=== PATIENT | male | born 1930 | race African-American/Black ===

== ENCOUNTER 2016-09-03 05:46 | Day surgery (SDC) | payer MEDICAID, MEDICARE ==
--- NOTE | 2016-09-02 16:49 | Pre-op HX & Phy Repo 2 SIG ---
DATE OF ADMISSION: 09/03/2016 DATE OF DICTATION: 09/02/2016 DATE OF SURGERY: 09/03/2016 PREOPERATIVE DIAGNOSIS: Vitreous opacification with chronic inflammation, right eye. BRIEF NOTE: This is the first [facility] admission for this patient who is a very nice 86-year-old gentleman who complained of vision being bad in the right eye since cataract surgery in 2014. He also has significant floaters and haze. PAST OCULAR HISTORY: Remarkable for cataract surgery done in 2014 with a posterior chamber lens implant. He has been treated with a variety of topical medications, but still has had no relief. 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 He is admitted for vitrectomy. He has a medical history including arthritis, hypertension, and chronic obstructive pulmonary disease. He does not smoke. CURRENT MEDICATIONS: 1. Potassium chloride. 2. Ketoconazole. 3. Lasix. 4. Carvedilol. 5. Atorvastatin. ALLERGIES: He has no known allergies. PHYSICAL EXAMINATION: Best vision at the time of admission was 20/200 in the right eye and 20/80 in the left with his current glasses. The pressures were 16 and 15. Anterior segment on the right showed fixed dilation of the pupil. There appeared to be vitreous in the anterior chamber cataract scar. Significant flare was noted as well as corneal haze. The posterior chamber lens was seen in reasonable position. The left eye showed a clear anterior segment. There was a significant nuclear and cortical cataract. Fundus exam of the right eye showed hyperemia of the nerve and obvious cystoid edema. There is significant vitreous haze and debris, but the retina appeared attached. The left fundus was normal. General physical examination was performed by the patient's primary physician. ASSESSMENT: Vitreous haze, inflammation, and debris, right eye. PLAN: The plan is to perform a pars plana vitrectomy with removal of vitreous debris as well as removal of vitreous adhesions from the anterior chamber. Kenalog injection will be performed and Endolaser done if needed. The risks and benefits of surgery have been gone over with the patient with potential for infection, hemorrhage, retinal detachment, inability to improve vision, and remote possibility of loss of the eye. The risks of anesthesia were discussed. The patient understands and consents to the surgery, which will be performed on Thursday. Gaetano Webb M.D. DR: JOSEF JOB#: [id number] CC:
[~2016-09-03] VITALS: Ht 180.3 cm; Wt 72.6 kg
[2016-09-03] VITALS (9 sets, daily range): BP systolic 129–146; BP diastolic 73–84
[2016-09-03] MEDS ORDERED: Cyclopentolate 1% Opth Sol ONE (06:19)
[2016-09-03] MEDS ORDERED: Gatifloxacin Opth Solution 0.5% ONE (06:19)
[2016-09-03] MEDS ORDERED: Flurbiprofen 0.03% Opth Sol 2.5ml ONE (06:20)
[2016-09-03] MEDS ORDERED: Phenylephrine 2.5% Op Soln ONE (06:20)
[2016-09-03] MEDS: Cyclopentolate 1% Opth Sol RIGHT EYE SCH ×3 (06:27→06:48)
[2016-09-03] MEDS: Flurbiprofen 0.03% Opth Sol 2.5ml RIGHT EYE SCH ×3 (06:28→06:48)
[2016-09-03] MEDS: Phenylephrine 2.5% Op Soln RIGHT EYE SCH ×3 (06:28→06:48)
[2016-09-03] MEDS: Gatifloxacin Opth Solution 0.5% RIGHT EYE SCH ×3 (06:28→06:48)
--- NOTE | 2016-09-03 06:29 | Pre-Procedure Note/Attestation ---
Pre-Procedure Note/Attestation Complete Prior to Procedure Planned Procedure: right Procedure Narrative: PPV, kenalog injection, possible endolaser R eye Indications for Procedure Pre-Operative Diagnosis: Vitreous opacification and and inflammation with CME R eye Attestation I attest that I discussed the nature of the procedure; its benefits; risks and complications; and alternatives (and the risks and benefits of such alternatives ), prior to the procedure, with the patient (or the patient's legal commercial sales representative). I attest that, if there was a reasonable possibility of needing a blood transfusion, the patient (or the patient's legal commercial sales representative) was given the [facility] standardized written summary, pursuant to the [place] Blood Safety Act ([place] Health and Safety Code # 1645, as amended). I attest that I re-evaluated the patient just prior to the surgery and that there has been no change in the patient's H&P, except as documented below: JUANCARLOS CRESPO September 03, 2016 06:29
[2016-09-03] MEDS ORDERED: Pred Forte 1% Opth Susp 1ml RIGHT EYE ONE (06:30)
[2016-09-03] MEDS ORDERED: Norco 5mg/325mg tab ORAL PRN (06:30)
[2016-09-03] MEDS ORDERED: FUROSEMIDE40 MG ORAL (06:47)
[2016-09-03] MEDS ORDERED: CALCIUM 600 +1 EAC4 PO (07:02)
[2016-09-03] MEDS ORDERED: LIPITOR80 MG ORAL (07:02)
[2016-09-03] MEDS ORDERED: AMLODIPINE BESY10 MG ORAL (07:02)
[2016-09-03] MEDS ORDERED: CARVEDILOL12.5 MG ORAL (07:02)
[2016-09-03] MEDS ORDERED: MULTIVITAMINS1 EAC2 ORAL (07:02)
[2016-09-03] MEDS ORDERED: PROSCAR5 MG ORAL (07:02)
[2016-09-03] MEDS ORDERED: POTASSIUM CHLO10 ME3 ORAL (07:02)
[2016-09-03] MEDS ORDERED: BIDIL TABLET1 EACH PO (07:02)
[2016-09-03] MEDS ORDERED: BSS 500ml btl ONE (07:03)
[2016-09-03] MEDS ORDERED: Tetracaine 0.5% Opth Soln ONE (07:04)
[2016-09-03] MEDS ORDERED: Dexamethasone 4mg/ml vial ONE (07:04)
[2016-09-03] MEDS ORDERED: Maxitrol Opth Oint 3.5gm ONE (07:04)
[2016-09-03] MEDS ORDERED: Kenalog-40 1ml Vial ONE (07:04)
[2016-09-03] MEDS ORDERED: ATROVENT HFA12.9 GM IH (07:05)
[2016-09-03] MEDS ORDERED: BSS 15ml BTL ONE (07:05)
[2016-09-03] MEDS ORDERED: Lidocaine 2% MPF 5ml Vial INJ ONE (07:05)
[2016-09-03] MEDS ORDERED: EPINEPHrine 1mg/1ml Amp ONE (07:05)
[2016-09-03] MEDS ORDERED: Bupivacaine 0.75% 30ml vial INJ ONE (07:05)
[2016-09-03] MEDS ORDERED: Kenalog-10 5ml Inj ONE (07:05)
[2016-09-03] MEDS ORDERED: Sodium Hyaluronate 10 mg/ml 0.85ml ONE (07:06)
[2016-09-03] MEDS ORDERED: Povidone-Iodine 5% opth solution ONE (07:07)
[2016-09-03] MEDS ORDERED: LR 1000ml 1,000 ML IVLG SCH (07:56)
[2016-09-03] MEDS ORDERED: LR 1000ml 1,000 ML IV SCH (08:00)
--- NOTE | 2016-09-03 08:04 | Anethesia Preoperative Eval ---
Anesthesia Pre-op PMH/ROS General Date of Evaluation: September 03, 2016 Time of Evaluation: 07:20 Anesthesiologist: Edith ASA Score: ASA 3 Mallampati Score Class I : Soft palate, uvula, fauces, pillars visible Class II: Soft palate, uvula, fauces visible Class III: Soft palate, base of uvula visible Class IV: Only hard plate visible Mallampati Classification: Class II Surgeon: Tracey Diagnosis: Cystoid macular edema right eye Surgical Procedure: PPV, endolaser, kenalog injection Family History: no anesthesia problems Allergies: Coded Allergies: No Known Allergies (Unverified , 09/02/16) Medications: see eMAR Past Medical History Cardiovascular: Reports: CAD, HTN, arrhythmia - S/P AICD, other - CHF Pulmonary: Reports: COPD, Denies: JASBIR, asthma, other Gastrointestinal/Genitourinary: Denies: CRI, ESRD, GERD, other Neurologic/Psychiatric: Denies: CVA, TIA, dementia, depression/anxiety, other Endocrine: Denies: DM, hypothyroidism, other, steroids HEENT: Reports: cataract (R) Hematology/Immune: Denies: DVT, anemia, bleeding disorder, other Musculoskeletal/Integumentary: Denies: DDD, DJD, OA, RA, edema, other PMH Narrative: HTN, CHF, COPD, CAD, dysrhythmia requiring AICD, BPH PSxH Narrative: Prostate, bowel obstruction, left hand, cataract, AICD placement Anesthesia Pre-op Phys. Exam Physician Exam Last Vital Signs Date Time Temp Pulse Resp B/P Pulse Ox O2 Delivery O2 Flow Rate FiO2 09/03/16 06:31 97.5 63 20 129/75 94 Room Air Constitutional: NAD Neurologic: CN 2-12 intact Cardiovascular: RRR, no M/R/G Respiratory: CTA Gastrointestinal: S/NT/ND Airway Exam Mallampati Score: Class II MO: full ROM: full Dentures: lower, upper Anesthesia Pre-op A/P Risk Assessment & Plan Assessment: Macular edema in a multi organ compromised patient Plan: MAC, TIVA Status Change Before Surgery: No Pre-Antibiotics Drug: None JOVAN MAXWELL M.D. September 03, 2016 08:04
--- NOTE | 2016-09-03 08:05 | Immediate Post-Op Evaluation ---
Immediate Post-Op Evalulation Immediate Post-Op Evalulation Procedure: PPV, endolaser, kenalog injection Date of Evaluation: September 03, 2016 Time of Evaluation: 08:35 IV Fluids: 225 Blood Pressure Systolic: 146 Blood Pressure Diastolic: 75 Pulse Rate: 66 Respiratory Rate: 16 O2 Sat by Pulse Oximetry: 100 Temperature (Fahrenheit): 98.3 Pain Score (1-10): 0 Nausea: No Vomiting: No Complications No complication Patient Status: awake, patent, none Hydration Status: adequate Drug: None JOVAN MAXWELL M.D. September 03, 2016 08:05
--- NOTE | 2016-09-03 08:29 | 48 Hour Post Anesthesia Eval ---
Post Anesthesia Evaluation Procedure: PPV, endolaser, kenalog injection Date of Evaluation: September 03, 2016 Time of Evaluation: 09:00 Blood Pressure Systolic: 143 0: 74 Pulse Rate: 68 Respiratory Rate: 18 O2 Sat by Pulse Oximetry: 98 Airway: patent Nausea: No Vomiting: No Pain Intensity: 0 Hydration Status: adequate Cardiopulmonary Status: Stable Mental Status/LOC: patient returned to baseline Follow-up Care/Observations: As per surgery Post-Anesthesia Complications: No anesthetic complication Follow-up care needed: N/A JOVAN MAXWELL M.D. September 03, 2016 08:29
--- NOTE | 2016-09-03 08:41 | Brief Operative Note ---
Immediate Post Operative Note Operative Note Chief Complaint: Cloudy vision R eye Pre-op Diagnosis: Vitreous opacification and and inflammation with CME R eye Procedure: PPV, removal of vitreous adhesions, Kenalog injection 2mg, R eye Post-op Diagnosis: Same Post-op Diagnosis: same as pre-op Surgeon: theodora French Binding Folder: martir Anesthesiologist: Evangelina Anesthesia: MAC Specimen: none Complications: none Condition: stable Estimated Blood Loss: none Drains: none Implant(s) used?: No JUANCARLOS CRESPO September 03, 2016 08:41
[2016-09-03] MEDS ORDERED: LR 1000ml ONE (09:30)
[2016-09-03] MEDS ORDERED: Sterile Water Irrig 1000ml IRRIG ONE (09:30)
[2016-09-03] MEDS ORDERED: NS Irrig 1000ml ONE (09:30)
[2016-09-03] MEDS ORDERED: Propofol 10mg/ml 20ml IV ONE (09:30)
--- NOTE | 2016-09-03 10:29 | Operative Note - Dictated ---
DATE OF OPERATION: 09/03/2016 PREOPERATIVE DIAGNOSIS: Vitreous inflammation with cystoid edema and adhesions and anterior chamber, right eye. POSTOPERATIVE DIAGNOSIS: Vitreous inflammation with cystoid edema and adhesions and anterior chamber, right eye. PROCEDURES: 1. Pars plana vitrectomy. 2. Removal of vitreous adhesions. 3. Kenalog injection, right eye. SURGEON: Gaetano Webb M.D. GRADER PATROL: Home Sharma M.D. ANESTHESIA: Local with sedation. ANESTHESIOLOGIST: Lopez Sharma M.D. JUSTIFICATION FOR SURGERY: This 86-year-old gentleman with a long history of postoperative inflammation after cataract surgery complained of poor vision. He was admitted for vitrectomy. BRIEF NOTE: The patient was brought to the operative room, placed on operating room table in supine position. After a time out was agreed upon and performed by the staff, initial monitoring was secured by Dr. Sharma. Retrobulbar and Van Lint blocks were then given in the standard way. When the blocks taken effect, he was prepped and draped in normal manner. A lid speculum was inserted into the right eye. Using a 23-gauge trocar system cannulas were placed in all except infranasal quadrant 4 millimeters from limbus. Infusion secured inferotemporally. The paracentesis was made in the anterior chamber at 11 o'clock and Kenalog introduced into the anterior chamber to visualize vitreous adhesions. Vitrectomy was then carried out posterior to the lens. Vitreous that was entering the anterior chamber was gently separate from posteriorly and suction from the anterior chamber of the eye. Vitrectomy was then continued along the edges of the posterior sclerotomy removing vitreous adhesions and then further peripherally leaving a small vitreous skirt. Kenalog was then used to visualize vitreous in the posterior segment. Posterior hyaloid was elevated and this was removed. Kenalog dusting was left on the posterior pole with no puckering was seen. Scleral depression was done, no peripheral breaks, tears, or detachments were seen. An additional 2 mg of Kenalog was injected into the posterior pole. The cannulas were removed superiorly and the wounds noted to be self-sealing. The infusion cannula was also removed and this sclerotomy was closed with 7-0 Vicryl suture. Subconjunctival Decadron and gentamicin were injected inferiorly and Maxitrol and atropine ointments were instilled. The eye was patched and shielded and the patient was taken to recovery in excellent condition. There were no complications. Gaetano Webb M.D. DR: LIGIA JOB#: [id number] CC: Gaetano Webb M.D.; Fax#: [phone] Sharma M.D. ; Fax#: [phone]
== END 2016-09-03 10:00 | disposition home or self-care (01) ==
LOC: SUR 05:46
DX: H59.0 Disorders of the eye following cataract surgery (principal); Y84.8 Other medical procedures as the cause of abnormal reaction of the patient, or of later complication, without mention of misadventure at the time of the procedure; Y92.89 Other specified places as the place of occurrence of the external cause; H43.391 Other vitreous opacities, right eye; H43.89 Other disorders of vitreous body; I10 Essential (primary) hypertension; J44.9 Chronic obstructive pulmonary disease, unspecified; I50.9 Heart failure, unspecified; I25.10 Atherosclerotic heart disease of native coronary artery without angina pectoris; I49.9 Cardiac arrhythmia, unspecified; Z95.810 Presence of automatic (implantable) cardiac defibrillator
CPT/HCPCS: 67036; J0171; J1100; J2704; J3301; J3470; J3490; J7120; 94003; 94150